=== PATIENT | female | born 1990 | race Caucasian/White ===

== ENCOUNTER 2021-11-28 21:49 | Inpatient (IN) ==
[2021-11-28] MEDS ORDERED: Lactated Ringers 1000 ml BAG 1,000 ML IV ONE (22:25)
[2021-11-28] MEDS ORDERED: Buffered Lidocaine 1% SYRIN 1 ml INTRADERM ONE (22:25)
[2021-11-28] MEDS ORDERED: Lactated Ringers 1000 ml BAG 1,000 ML IV SCH (23:00)
[2021-11-28 23:13] LABS: ABS Lymphocytes 1.6 10^3/ul (1.0-4.8); ABS Monocytes 0.9 10^3/ul (0-0.8); ABS Neutrophils 12.2 10^3/ul (1.5-7.7); Eosinophil % 0.1 %; Hematocrit 38 % (35-47); Hemoglobin 13.6 g/dL (12.0-16.0); Lymphocyte % 10.7 %; Mean Corpuscular HGB Conc 36 g/dL (31-36); Mean Corpuscular Hemoglobin 33 pg (27-31); Mean Corpuscular Volume 94 fL (80-97); Mean Platelet Volume 7.9 fL (7.4-10.4); Platelet Count 219 10^3/uL (150-450); Red Blood Count 4.07 10^6 /uL (3.70-4.87); Red Cell Distribution Width 13 % (10-15); White Blood Count 14.7 10^3/uL (3.5-10.8)
[2021-11-28 23:13] LABS: Urine Benzodiazepine Screen None Detected (None Detect); Urine Cannabinoids Screen None Detected (None Detect); Urine Opiates Screen None Detected (None Detect)
[2021-11-28] MEDS ORDERED: OBEPIDURAL 250 ML EPIDURAL ONE (23:39)
[2021-11-29] MEDS ORDERED: Sodium Citrate/Citric Acid LIQ 15 ML UDC PO PRN (00:08)
[2021-11-29] MEDS ORDERED: Phenylephrine 40 mcg/mL 10mL (400mcg) SYRINGE IV PUSH PRN ×2 (00:08)
[2021-11-29] MEDS ORDERED: Lactated Ringers 1000 ml BAG 1,000 ML IV ONE (00:08)
[2021-11-29] MEDS ORDERED: Lactated Ringers 1000 ml BAG 1,000 ML IV SCH ×2 (01:00→04:00)
[2021-11-29] MEDS ORDERED: OBEPIDURAL 250 ML EPIDURAL SCH (01:00)
[2021-11-29] MEDS ORDERED: Oxytocin in LR 20 UNITS/1,000 ML BAG IVPB ONE (02:35)
[2021-11-29] MEDS ORDERED: Dibucaine 1% OINT 28.35 GM TUBE PR PRN (03:05)
[2021-11-29] MEDS ORDERED: Glycerin ADULT 2.4 gm SUPP PR PRN (03:05)
[2021-11-29] MEDS ORDERED: Witch Hazel PAD JAR TOPICAL PRN (03:05)
[2021-11-29] MEDS ORDERED: RHO D Immune Globulin (HUMAN) 300 MCG = 1,500 I.U. INJ IM PRN (03:05)
[2021-11-29] MEDS ORDERED: Nicotine PATCH 21 MG/24 HR PATCH TRANSDERM SCH (09:00)
[2021-11-29] MEDS ORDERED: Nicotine GUM 4MG FRUIT FLAVOR PO PRN (16:02)
[2021-11-30 10:03] VITALS: BP 100/62
[2021-11-30 13:56] LABS: Cytomegalovirus IgG Antibody Negative (Negative)
[2021-12-03 13:09] LABS: DRVVT Screen Ratio 0.97 ratio (<1.20); LAC APTT 32 sec (25 - 37); LAC INR 0.9 (0.9-1.1); Prothrombin Time(LAC) 9.8 sec (9.4 - 12.5)
[2021-12-03 15:15] LABS: Parvovirus (B19) IgG Antibody Positive (Negative); Parvovirus (B19) IgM Antibody Negative (Negative)
[2021-12-03 16:15] LABS: Phospholipid Ab IgG < 9.4 GPL; Phospholipid Ab IgM, S 21.9 MPL
== END 2021-11-30 11:53 | disposition home or self-care (01) | DRG 560 ==
LOC: MCHOBOUT 21:49 → MCHOB 22:19
PROVIDERS: ADMIT Midwife; ATTEND Midwife